=== PATIENT | female | born 1955 | race Caucasian/White ===

== ENCOUNTER → 2024-08-17 | Outpatient (REF) | payer MEDICARE, OTHER, MEDICAID | LOC: M LAB REF 12:25 | PROVIDERS: ATTEND Physician Assistant Medical | DX: N39.0 Urinary tract infection, site not specified (principal) ==

== ENCOUNTER → 2025-02-10 | Outpatient (CLI) | payer OTHER, MEDICAID | LOC: M RAD 11:50 | PROVIDERS: ATTEND Physician Assistant Medical | DX: M25.561 Pain in right knee (principal); M25.562 Pain in left knee ==